=== PATIENT | male | born 1990 | race Two or more races ===

== ENCOUNTER 2020-01-31 21:58 | Emergency (ER) | payer OTHER ==
[~2020-01-31] VITALS: Ht 175.3 cm; Wt 82.0 kg
[2020-01-31] MEDS ORDERED: LIDOCAINE HCL/PF 1% 10 MG/ML 5ML VIAL IJ ONE (23:45)
[2020-02-01 01:35] VITALS: BP 128/79
== END 2020-02-01 02:00 | disposition home or self-care (01) ==
LOC: ER 21:58
DX: S01.01XA Laceration without foreign body of scalp, initial encounter (principal); S40.021A Contusion of right upper arm, initial encounter; S00.83XA Contusion of other part of head, initial encounter; Y08.89XA Assault by other specified means, initial encounter; Y93.89 Activity, other specified; Y92.89 Other specified places as the place of occurrence of the external cause; Y99.8 Other external cause status
CPT/HCPCS: 12001; 70450; 70486; 73130; 99285; J3490